=== PATIENT | female | born 1955 | race Caucasian/White ===

== ENCOUNTER → 2016-07-09 | Outpatient (CLI) | payer OTHER ==
[~2016-07-09] MED LIST: ASPIRIN81 M2 PO; CLOPIDOGREL75 MG PO; FLAGYL PO; IMDUR-ER30 MG PO; LIPITOR20 MG PO; METOPROLOL TAR25 MG PO; STOOL SOFTENER1 EACH; TOPROL XL
--- NOTE | ~2016-07-09 | EKG ---
PATIENT: MOON DOMINIQUE UNIT #: [id number] Ventricular Rate: 59 BPM Atrial Rate: 59 BPM P-R Interval: 126 ms QRS Duration: 88 ms Q-T Interval: 430 ms QTC Calculation(Bezet): 425 ms P Crowley: 72 degrees Calculated R Crowley: 87 degrees Calculated T Crowley: 75 degrees Diagnosis Line: Sinus bradycardia Diagnosis Line: Nonspecific T wave abnormality Diagnosis Line: Abnormal ECG Diagnosis Line: When compared with ECG of 16-SEP-2013 10:32, Diagnosis Line: Nonspecific T wave abnormality, worse in Anterior Diagnosis Line: leads Diagnosis Line: Confirmed by KULDIP CENTENO MD ([id number]) on 07/10/2016 Diagnosis Line: 11:14:02 PM INTERPRETING MD: JACOBO MOLINA
[2016-07-09 11:54] LABS: HEMOGLOBIN 15.5 gm/dL (12.0-16.0); MEAN CELL VOLUME 90.8 FL (83-96); MEAN CORPUSCULAR HEMOGLOBIN 29.9 PG (28-34); MEAN CORPUSCULAR HGB CONC 32.9 g/dL (30-36); RED BLOOD COUNT 5.18 X10e (3.90-5.30); RED CELL DISTRIBUTION WIDTH 14.5 % (11.0-15.5); WHITE BLOOD COUNT 12.6 X10e3 (4.0-10.5)
[2016-07-09 12:12] LABS: INR 0.9; PARTIAL THROMBOPLASTIN TIME 26.4 SECONDS (23.5-31.3); PROTHROMBIN TIME (PATIENT) 9.9 SECONDS (9.6-11.5)
[2016-07-09 12:23] LABS: BUN/CREATININE RATIO 17.77; CALCIUM SERUM 9.7 mg/dL (8.4-10.2); CREATININE SERUM 0.9 mg/dL (0.6-1.4); GLOM FILT RATE Estimated 70.5 mL/min (>60); POTASSIUM 4.9 mmol/L (3.5-5.1)
== END | disposition home or self-care (01) ==
LOC: CCVL 10:44
PROVIDERS: Internal Medicine Cardiovascular Disease
DX: I51.9 Heart disease, unspecified (principal); I73.9 Peripheral vascular disease, unspecified; J44.9 Chronic obstructive pulmonary disease, unspecified; E78.5 Hyperlipidemia, unspecified; F17.210 Nicotine dependence, cigarettes, uncomplicated; Z79.82 Long term (current) use of aspirin
CPT/HCPCS: 36415; 80048; 85027; 85610; 85730; 93005; C1769; C1887; C1894; J1644; J2250; J3010

== ENCOUNTER 2016-10-28 09:43 | Inpatient (IN) | payer OTHER ==
[~2016-10-28] VITALS: Ht 165.1 cm; Wt 72.6 kg
--- NOTE | ~2016-10-28 | DS ---
Unit #: [id number] #: [id number] Patient: MOON COOPER [id number] [facility]. [place], [place] [address] [id number] MR#: [id number] NAME: MOON COOPER. ROOM: 239 Age: 60 Sex: F Admission Date: 10/28/2016 : 1955 Discharge Date: 10/30/2016 Attending Physician: Radha uRiz M.D. Primary Care Physician: Dillan Rahman Jr., M.D. DISCHARGE SUMMARY ADMITTING DIAGNOSES 1. Bright red blood per the rectum, abdominal pain likely secondary to acute diverticulitis versus colitis. 2. Dehydration. 3. Palpitations. 4. Dyslipidemia. 5. Tobacco abuse. DISCHARGE DIAGNOSES 1. Bright red blood per the rectum with abdominal pain due to colitis, ischemic in etiology. 2. Dehydration, resolved. 3. Palpitations, stable. 4. Dyslipidemia. 5. Tobacco abuse. CONSULTS Include [facility]. PROCEDURES Included colonoscopy showing sigmoid diverticulosis and ischemic colitis. HISTORY OF PRESENT ILLNESS Ms. Cooper is a 60-year-old white female with history of palpitations and tobacco abuse who presented with abdominal pain and was also having bright red blood per the rectum. HOSPITAL COURSE The patient's hospital course overall was uneventful. She was admitted for evaluation of her abdominal pain and bright red blood per the rectum. CT scan showed diverticulitis versus colitis. Given her bright red blood per the rectum, I did ask [facility] to evaluate the patient. I did speak with Dr. Pineda during the time of consultation and he agreed that patient likely should undergo colonoscopy. She was empirically started on IV antibiotics for possible diverticulitis/colitis. She did undergo colonoscopy which showed ischemic colitis as well as some sigmoid diverticulosis. Her white blood cell count did improve with hydration and IV antibiotics and, overall, patient has done well post scope. Her hemoglobin remains stable. She has been tolerating her low residue diet and on the day of discharge she was ambulating with her . No complaints of abdominal pain and, overall, is medically stable for discharge. We did discuss with her in regards to smoking cessation as well as risk factor modification in regards to cardiovascular disease. She will be discharged home to complete a 10 day course of oral Unit #: [id number] #: [id number] Patient: MOON COOPER antibiotics as described in the discharge medications below. DISCHARGE MEDICATIONS Her discharge medications therefore include: 1. She will resume her metoprolol 25 mg p.o. b.i.d. 2. Lipitor 20 mg p.o. q. h.s. 3. Aspirin 81 mg p.o. daily. 4. Flagyl 500 mg p.o. t.i.d. to end on 11/06/2016. 5. It is okay for her to resume her qqvk-nor-xxuhoka stool softeners. DISCHARGE INSTRUCTIONS Discharge instructions are that she will be discharged home today. She will follow up with Dr. Lennon of [facility] in 8-9 days for colonoscopy followup as well as pathology follow up. She will follow up with her primary care physician in one to two weeks and she may return to work on Thursday, November 04. Dictated by... Sukhdeep Oviedo/jose m TD: 11/01/2016 16:11 JOB #: [id number] CC: Vicente Lennon M.D. DISCHARGE SUMMARY Page 1 of 1 X Radha Ruiz DISCHARGE SUMMARY
--- NOTE | ~2016-10-28 | CT2 ---
[facility] A Service of [facility] & [facility] RADIOLOGY TEXT RESULTS PATIENT: MOON DOMINIQUE [facility] [id number] : [birth year] UNIT #: [id number] AGE: [address]: Radha Ruiz MD SEX: F ORDER DR: [id number] [facility] [address] [place], [place] [address] [id number] MR#: [id number] Acc #: [id number] NAME: MOON DOMINIQUE : 1955 SEX: F STUDY DATE/TIME: 10/28/2016 12:12 UNIT: FERNANDO ROOM: STUDY DESCRIPTION: CT Abd and Pelv W Cont Attending Physician: Cora Petty M.D. Ordering Physician: Cora Petty M.D. Primary Care Physician: Dillan Rahman Jr., M.D. MEDICAL IMAGING REPORT This report is preliminary unless electronic signature is present EXAM CT abdomen and pelvis with contrast 10/28/2016 1212 hours HISTORY 60-year-old woman complaining of low back pain for 3 days with blood in stool today. COMPARISON Abdomen series with chest 11/05/2015. No prior CT scan. TECHNIQUE Dynamic helical CT images were obtained from the lung bases through the pubic symphysis. Oral and intravenous contrast were administered. Contrast was Isovue-370 100 mL IV. Total exam DLP 639 mGy-cm. This CT exam was performed with one or more of the following radiation dose reduction techniques: Automatic exposure control, adjustment of mA and/or kV according to patient size, and iterative reconstruction. FINDINGS Images through the lung bases demonstrate racavori-vq-sasojd emphysematous change with areas of linear scarring. There is no evidence of acute pneumonia, edema or effusion. Postcontrast images through the abdomen demonstrate a tiny cyst in the liver, at the junction of the anterior segment right lobe and medial segment left lobe inferiorly on image 28. The liver is otherwise negative. The spleen, pancreas and gallbladder appear normal. There is no adrenal lesion. Kidneys demonstrate no stones or solid mass. There are multiple very small cortical cysts left kidney. The abdominal aorta is normal in caliber. There is no adenopathy or ascites. [facility] A Service of [facility] & [facility] RADIOLOGY TEXT RESULTS PATIENT: MOON DOMINIQUE LOCATION: [facility] [id number] : [birth year] UNIT #: [id number] AGE: [address]: Radha Ruiz MD SEX: F ORDER DR: The stomach is contracted and poorly opacified but does appear normal. There is no small bowel distension or small bowel wall thickening. The terminal ileum is normal. The appendix is surgically absent. There is oral contrast material in the ascending colon and transverse colon, with minimal opacification of the descending colon. There is evidence of diverticulosis in the distal descending colon and sigmoid colon, with a fairly long segment of wall thickening extending from the distal descending colon through the mid sigmoid colon. Findings could represent diverticulitis, however the length of the segmental involvement would favor colitis. The rectum appears normal. IMPRESSION 1. There is underlying diverticulosis with a long segment of wall thickening seen from the distal descending colon through the mid sigmoid colon. The length of segmental involvement would favor colitis over diverticulitis. The length of involvement would make malignancy unlikely. 2. Small, benign cortical cysts left kidney. No renal or ureteral stones. 3. Normal gallbladder, bile ducts and pancreas. 4. Appendix is surgically absent. Dictated by... Manuela Liu M.D. THIS IS AN ELECTRONICALLY VERIFIED REPORT Manuela Liu M.D. at 10/28/2016 5:27 PM ELENA/stephenie TD: 10/28/2016 15:50 JOB #: [id number] MEDICAL IMAGING REPORT Page 1 of 1 COPY
--- NOTE | ~2016-10-28 | CO ---
Unit #: [id number] #: [id number] Patient: MOON DOMINIQUE [id number] [facility]. [address] [place], [place] [address] [id number] I MR#: [id number] NAME: MOON DOMINIQUE ROOM: 239 Age: 60 Sex: F Admission Date: 10/28/2016 : 1955 Attending Physician: Todd Rios M.D. Primary Care Physician: Dillan Rahman Jr., M.D. Consultation Date: 10/28/2016 CONSULTATION REPORT BRIEF SUMMARY The patient is a 60-year-old white female, who has normal good health up until approximately 3 days ago when she developed left flank pain and left back pain as well as some left lower quadrant abdominal pain. The pain was constant, but not very significant as far as intensity when at first. Earlier today, she developed some diarrhea with one episode of bright red rectal bleeding. She has had a previous colonoscopy approximately [address] Gregory and this revealed some evidence of diverticulosis. Otherwise, no other abnormalities. She has had no significant history for anemia. She has been on Plavix for cardiac reasons and has had cardiac problems in the past. When she presented, she appeared to be slightly dehydrated. The patient has had no significant history for major lower GI bleeding or upper GI bleeding. REVIEW OF SYSTEMS Twelve system review has been performed, which is not remarkable except for that noted in the present illness. DIAGNOSTIC STUDIES IMAGING STUDIES: CT scan in the emergency room revealed evidence of segment in the left colon probably compatible with colitis versus possible diverticulitis with some diverticula. LABORATORY RESULTS: White blood cell count slightly elevated at 12,100. Hemoglobin is normal. PAST MEDICAL HISTORY The rest of her past medical history is not remarkable. PHYSICAL EXAMINATION VITAL SIGNS: Temperature on admission 97.6, pulse 48, respirations 12, blood pressure 113/65. GENERAL DESCRIPTION: The patient is a well-developed, well-nourished 60-year-old white female, in no acute distress. HEENT: Not remarkable. NECK: Supple. CHEST: There is equal bilateral expansion with bilateral equal breath sounds. LUNGS: Clear bilaterally. HEART: Regular rhythm without murmurs or gallops. No evidence of cardiomegaly clinically. ABDOMEN: Soft, mildly tender in the left lower quadrant without mass or organomegaly. There is no gross abdominal distention. No guarding or rebound. Active bowel sounds present. No evidence of ascites or hernias. Unit #: [id number] #: [id number] Patient: MOON DOMINIQUE BACK: There is minimal tenderness, but no CVA tenderness. NEUROLOGIC: Grossly intact. EXTREMITIES: Full range of motion without limitation. IMPRESSION The patient likely has colitis or possibly some diverticulitis. PLAN Plan will be to have her admitted on IV antibiotics and subsequently, she will need a colonoscopy after prep. Dictated by... Willard Pineda Jr., M.D. MARIAJOSE/mey TD: 10/28/2016 20:41 JOB #: [id number] CC: Dillan Rahman Jr, M.D. CONSULTATION REPORT Page 1 of 1 X Willard Pineda MD X CONSULTATION REPORT
--- NOTE | ~2016-10-28 | OR ---
Unit #: [id number] #: [id number] Patient: MOON DOMINIQUE [id number] [place], [place] [address] [id number] I MR#: [id number] NAME: MOON DOMINIQUE. ROOM: 239 Date of Procedure: 10/29/2016 Admission Date: 10/28/2016 Surgeon: Vicente Lennon M.D. : 1955 Attending Physician: Radha Ruiz M.D. Primary Care Physician: Dillan Rahman Jr., M.D. OPERATIVE REPORT PREOPERATIVE DIAGNOSES 1. Left-sided abdominal pain. 2. Abnormal CT scan with possible colitis. POSTOPERATIVE DIAGNOSES 1. Left-sided abdominal pain. 2. Abnormal CT scan with possible colitis. PROCEDURE PERFORMED 1. Colonoscopy to cecum. 2. Multiple biopsies of descending colon. ANESTHESIA Monitored anesthesia care. FINDINGS The patient was found to have sigmoid diverticular disease, but in an area of the descending colon without obvious diverticula. There was moderately severe colitis extending from 45 to 30 cm. Multiple biopsies were obtained with good hemostasis. SPECIMENS Sent to pathology. COMPLICATIONS None apparent. CONDITION The patient tolerated the procedure well. INDICATIONS FOR PROCEDURE The patient is a 60-year-old white female, who presents at this time with left-sided abdominal pain and some intermittent rectal bleeding. She had a CT scan, which revealed thickening and inflammation suspicious for colitis of the descending colon. She presents at this time for evaluation by colonoscopy. DESCRIPTION OF PROCEDURE After obtaining informed consent, the patient was brought to the endoscopy suite and after adequate monitored anesthesia care, had the colonoscope placed through the anus and slowly advanced to the level of the cecum without difficulty with the lumen always in view. The cecum was normal as Unit #: [id number] #: [id number] Patient: MOON DOMINIQUE was the ileocecal valve. The ascending colon was normal as was the hepatic flexure, transverse colon, splenic flexure, and proximal descending colon. In the mid descending colon at approximately 45 to 50 cm extending to about 30 cm, there were moderately severe inflammation and colitis. Multiple biopsies were obtained with good hemostasis. There was no obvious diverticula present here. In the sigmoid colon more distally, there were a few scattered diverticula, but there were not very numerous. The rectosigmoid and rectum were all within normal limits. On retroflexing in the rectum to the anorectal junction, the patient was found to have no significant abnormalities. The scope was removed without difficulty. The patient tolerated the procedure well and went from the endoscopy suite to recovery area in stable condition. RECOMMENDATIONS Clear liquid diet. Continue IV antibiotics. Resume preop orders. Dictated by... Sukhdeep Dumont/mey TD: 10/30/2016 10:42 JOB #: [id number] CC: [facility] Radha Ruiz M.D. OPERATIVE REPORT Page 1 of 1 X Vicente Lennon MD X PROCEDURE OPERATIVE NOTE
--- NOTE | ~2016-10-28 | HP ---
Unit #: [id number] #: [id number] Patient: MOON COOPER [id number] [facility]. [place], [place] [address] [id number] I MR#: [id number] NAME: MOON COOPER ROOM: 239 Age: 60 Sex: F Admission Date: 10/28/2016 : 1955 Attending Physician: Radha Ruiz M.D. Primary Care Physician: Dlilan Rahman Jr., M.D. HISTORY AND PHYSICAL CHIEF COMPLAINT Abdominal pain. HISTORY OF PRESENT ILLNESS Ms. Cooper is a 60-year-old white female with a history of palpitations and tobacco abuse who presented with a two-day history of abdominal pain and a one-day history of bloody stool. Patient states she was in her normal state of health. She traveled to [facility] where she went fishing with her . Denies any questionable food intake. Denies any sick contacts. She states when she returned however, she awoke with abdominal pain in her lower abdomen radiating to her back. She states that she had had similar pain to this in the past where she felt constipated but did not have the back pain at that time. She actually underwent a colonoscopy at that time back in 2002 where she was found to have diverticular disease, but at that time, she did not have any blood in her stool. She then states that yesterday and today she noted some maroon-colored bloody stool. She has had four loose stools today, two of which have had blood in them. She states that she would have increased cramping before she would pass her bowel movement, also with some nausea but no vomiting, no fever, and no chest pain or shortness of breath, and again, felt as the abdominal pain was similar to when she was constipated except that she did not have the back pain that accompanies it today. She has been able to eat over the last several days but has not had anything today due to the abdominal pain. Has not had any weight loss and again, no fevers or chills. PAST MEDICAL HISTORY 1. Palpitations. 2. Ectopic . 3. She had an EGD and colonoscopy in 2002 that showed some diverticula. 4. Appendectomy. 5. Right shoulder surgery. ALLERGIES None. HOME MEDICATIONS 1. Aspirin 81 mg p.o. daily. 2. Lipitor 20 mg p.o. daily. 3. Lopressor 50 mg p.o. b.i.d. that she is on for palpitations. SOCIAL HISTORY She lives with her . She admits to smoking a half a pack a day for the past 35 to 45 years. Rare alcohol use and no drug use. Unit #: [id number] #: [id number] Patient: MOON COOPER A FAMILY HISTORY Her mother had pancreatic cancer but also was diabetic and also had diverticular disease. REVIEW OF SYSTEMS CONSTITUTIONAL: Nausea as described above. No vomiting. HEENT: No blurry vision and no hearing difficulties, dysphagia, or rhinorrhea. PULMONARY: No dyspnea, hemoptysis, or cough. CARDIOVASCULAR: No chest pain. She does have palpitations but none at the current time. No swelling in her lower extremities. GASTROINTESTINAL: As described above. GENITOURINARY: No dysuria or hematuria. MUSCULOSKELETAL: She normally ambulates without the need for a cane or a walker. ENDOCRINE: No known history of thyroid or adrenal abnormalities. HEMATOLOGIC: No prior bleeding or bruising abnormalities. NEUROLOGIC: No one-sided weakness, numbness, or tingling. PHYSICAL EXAMINATION VITAL SIGNS: Temperature is 97.6, pulse has been 40s to 50s, respiratory rate is 16, and blood pressure is 90s to 110s over 60 to 80. She is 100% on room air. GENERAL APPEARANCE: She is a 60-year-old white female who is awake, alert, and in no acute distress. HEENT: Normocephalic and atraumatic. Equal ocular movements are intact. Pupils are equal, round, and reactive to light and accommodation. Nose and throat are within normal limits except for dry mucous membranes. NECK: Supple. No JVD, bruits, or cervical lymphadenopathy. CHEST: Clear to auscultation bilaterally with no wheezes, rhonchi, or crackles. CARDIOVASCULAR: S1 and S2 is normal. She has a regular rate and rhythm. ABDOMEN: Soft. She is tender in her lower abdomen but no rebound or guarding. EXTREMITIES: No cyanosis, clubbing, or edema. MUSCULOSKELETAL: She moves all four extremities without difficulty. NEUROLOGICALLY: She is oriented x3. Sensory and motor are intact. SKIN: No visible rashes or lesions. DIAGNOSTIC STUDIES LABORATORY: Sodium 135, potassium 4.2, chloride 103, bicarb 24, BUN and creatinine 20 and 0.9, glucose 92, calcium 9.6, total protein 7.1, albumin 4.4, total bilirubin 0.9, AST 19, ALT 17, and alkaline phosphatase is 55. PT-INR is 10.3 and 0.9 with PTT of 27.2. White count is 12.1, hemoglobin and hematocrit are 14.3 and 42.1, with a platelet count of 191,000, 78 neutrophils, and 14 lymphocytes. Urinalysis overall was negative. IMAGING: CT scan of the abdomen and pelvis per the read was diverticulitis versus colitis. IMPRESSION Ms. Cooper is a 60-year-old white female with a history of palpitations who presents with bright red blood per the rectum and abdominal pain. PLAN 1. Bright red blood per the rectum, abdominal pain, likely due to diverticulitis/colitis: She will be treated conservatively with IV Unit #: [id number] #: [id number] Patient: MOON COOPER fluids, IV antibiotics, symptom control with IV pain control and IV antiemetics. Will have Surgery to evaluate her especially given that she is having bright red blood per the rectum. Currently, her hemoglobin is stable. However, I expect that it may drop a little bit given that she will be placed on IV fluids. Will await Surgery's evaluation and monitor her for now. 2. Dehydration: She will be on IV fluids. 3. Palpitations: She is not currently having palpitations, and given that her blood pressure is low normal and her heart rate is slightly bradycardic, we will hold her beta niko for now. 4. Dyslipidemia: Will continue her statin. 5. Tobacco abuse: I did offer her a nicotine patch which she has refused at the present time. 6. Prophylaxis: She will be on SCDs and TEDs given that will avoid anticoagulation in her given her possible GI bleed. 7. Disposition: I will await General Surgery's evaluation regarding any further workup at this time. She will be discharged home once her symptoms have improved, particularly her white blood cell count. I expect that given the evaluation and management that her hospital stay will exceed more than 48 hours. 1. Dictated by Radha Ruiz M.D. SAMIRA/lara TD: 10/28/2016 20:25 JOB #: [id number] HISTORY AND PHYSICAL Page 1 of 1 X Radha Ruiz X HISTORY AND PHYSICAL
[~2016-10-28 09:43] MED LIST changes: -FLAGYL PO; -STOOL SOFTENER1 EACH
[2016-10-28 10:20] LABS: URINE SOURCE CLEAN CATCH
[2016-10-28 10:21] LABS: BASOPHIL% 0.3 % (0-2.5); EOSINOPHIL% 0.4 % (0.0-7.0); HEMATOCRIT 42.1 % (35.0-45.0); HEMOGLOBIN 14.3 gm/dL (12.0-16.0); LYMPHOCYTE# 1.7 X10e3 (1.0-3.5); LYMPHOCYTE% 14.3 % (17.0-45.0); MEAN CELL VOLUME 89.1 FL (83-96); MEAN CORPUSCULAR HEMOGLOBIN 30.2 PG (28-34); MEAN CORPUSCULAR HGB CONC 33.9 g/dL (30-36); MEAN PLATELET VOLUME 9.1 FL (6.5-11.5); MONOCYTE# 0.8 X10e3 (0-1.0); MONOCYTE% 6.8 % (3.0-12.0); NEUTROPHIL# 9.5 X10e3 (1.5-7.1); NEUTROPHIL% 78.2 % (40-75); PLATELET COUNT 191 X10e3 (140-420); RED BLOOD COUNT 4.73 X10e (3.90-5.30); RED CELL DISTRIBUTION WIDTH 13.7 % (11.0-15.5); WHITE BLOOD COUNT 12.1 X10e3 (4.0-10.5)
[2016-10-28 10:22] LABS: DIFF IND NO
[2016-10-28 10:24] LABS: URINE APPEARANCE CLEAR; URINE BILIRUBIN NEG (NEG); URINE BLOOD NEG (NEG); URINE COLOR YELLOW; URINE GLUCOSE NEG (NEG); URINE KETONE NEG (NEG); URINE LEUKOCYTE ESTERASE NEG (NEG); URINE NITRATE NEG (NEG); URINE PROTEIN NEG (NEG); URINE UROBILINOGEN 0.2 MG/DL (NEG)
[2016-10-28 10:33] LABS: CULTURE INDICATED? NO
[2016-10-28 10:35] LABS: INR 0.9; PARTIAL THROMBOPLASTIN TIME 27.2 SECONDS (23.5-31.3); PROTHROMBIN TIME (PATIENT) 10.3 SECONDS (10.0-11.7)
[2016-10-28 10:49] LABS: ALBUMIN SERUM 4.4 g/dL (3.5-5.0); ALKALINE PHOSPHATASE 55 U/L (32-92); ALT (SGPT) 17 U/L (10-40); AST (SGOT) 19 U/L (10-42); BILIRUBIN,TOTAL 0.9 mg/dL (0.2-2.0); BLOOD UREA NITROGEN 20 mg/dL (9-23); BUN/CREATININE RATIO 22.22; CALCIUM SERUM 9.6 mg/dL (8.4-10.2); CARBON DIOXIDE 24 mmol/L (22-31); CHLORIDE 103 mmol/L (100-111); CREATININE SERUM 0.9 mg/dL (0.6-1.4); GLOM FILT RATE Estimated 70.5 mL/min (>60); GLUCOSE FASTING 92 mg/dL (70-110); POTASSIUM 4.2 mmol/L (3.5-5.1); PROTEIN TOTAL SERUM 7.1 g/dL (6.0-8.3); SODIUM 135 mmol/L (135-145)
[2016-10-28 10:50] LABS: BILIRUBIN, DIRECT <0.1 mg/dL (0.0-0.2); BILIRUBIN,INDIRECT 0.8 mg/dL (0.0-0.9)
[2016-10-29 05:37] LABS: BASOPHIL% 0.4 % (0-2.5); EOSINOPHIL# 0.1 X10e3 (0-0.7); EOSINOPHIL% 0.7 % (0.0-7.0); HEMATOCRIT 39.2 % (35.0-45.0); HEMOGLOBIN 13.2 gm/dL (12.0-16.0); LYMPHOCYTE# 1.4 X10e3 (1.0-3.5); LYMPHOCYTE% 15.1 % (17.0-45.0); MEAN CELL VOLUME 89.9 FL (83-96); MEAN CORPUSCULAR HEMOGLOBIN 30.2 PG (28-34); MEAN CORPUSCULAR HGB CONC 33.6 g/dL (30-36); MEAN PLATELET VOLUME 9.3 FL (6.5-11.5); MONOCYTE# 0.7 X10e3 (0-1.0); MONOCYTE% 7.4 % (3.0-12.0); NEUTROPHIL# 7.1 X10e3 (1.5-7.1); NEUTROPHIL% 76.4 % (40-75); PLATELET COUNT 166 X10e3 (140-420); RED BLOOD COUNT 4.36 X10e (3.90-5.30); RED CELL DISTRIBUTION WIDTH 13.4 % (11.0-15.5); WHITE BLOOD COUNT 9.3 X10e3 (4.0-10.5)
[2016-10-29 06:08] LABS: DIFF IND NO
[2016-10-29 06:09] LABS: ALBUMIN SERUM 3.6 g/dL (3.5-5.0); BILIRUBIN,TOTAL 0.8 mg/dL (0.2-2.0); CALCIUM SERUM 9.1 mg/dL (8.4-10.2); CREATININE SERUM 0.8 mg/dL (0.6-1.4); GLOM FILT RATE Estimated 81.3 mL/min (>60); POTASSIUM 4.1 mmol/L (3.5-5.1); PROTEIN TOTAL SERUM 6.1 g/dL (6.0-8.3)
[2016-10-30] MEDS ORDERED: FLAGYL PO (11:03)
[2016-10-30] MEDS ORDERED: STOOL SOFTENER1 EACH (11:04)
== END 2016-10-30 11:29 | disposition home or self-care (01) | DRG 394 ==
LOC: CED 09:43 → CEDOF 15:12 → CED 15:49 → CEDOF 19:50 → C2A 19:50
PROVIDERS: Student in an Organized Health Care Education/Training Program; Surgery
PROC: 0DBM8ZX Excision of Descending Colon, Via Natural or Artificial Opening Endoscopic, Diagnostic (ICD-10-PCS; principal; 2016-10-29 13:07)
DX: K55.9 Vascular disorder of intestine, unspecified (principal); K57.32 Diverticulitis of large intestine without perforation or abscess without bleeding; I10 Essential (primary) hypertension; K92.1 Melena; E86.0 Dehydration; R00.2 Palpitations; E78.5 Hyperlipidemia, unspecified; F17.200 Nicotine dependence, unspecified, uncomplicated; Z79.82 Long term (current) use of aspirin; Z71.6 Tobacco abuse counseling; Z83.3 Family history of diabetes mellitus; Z80.0 Family history of malignant neoplasm of digestive organs; Z83.79 Family history of other diseases of the digestive system
CPT/HCPCS: 36415; 74177; 80048; 80053; 80076; 81003; 85025; 85610; 85730; 88305; 96361; 96374; 96375; 99285; C9113; J1956; J2250; J2405; J2543; Q9967